=== PATIENT | female | born 1995 | race Caucasian/White ===

== ENCOUNTER 2020-07-23 23:10 | Emergency (ER) | payer BC, SELFPAY ==
[~2020-07-23] VITALS: Ht 160 cm; Wt 66.0 kg
[2020-07-23 23:11] VITALS: BP 127/88
--- NOTE | 2020-07-24 00:11 | REPVR ---
PROCEDURE INFORMATION: Exam: XR Left Ankle Exam date and time: 07/23/2020 12:00 AM Age: 24 years old Clinical indication: Other: Trauma TECHNIQUE: Imaging protocol: XR Left ankle. Views: 3 or more views. COMPARISON: No relevant prior studies available. FINDINGS: Bones/joints: Normal. No fracture. Soft tissues: Normal. IMPRESSION: Negative left ankle. Electronically signed by: Luis Pugh On 07/24/2020 00:11:17 AM
--- NOTE | 2020-07-24 00:12 | REPVR ---
PROCEDURE INFORMATION: Exam: XR Left Foot Complete Exam date and time: 07/23/2020 12:00 AM Age: 24 years old Clinical indication: Other: Trauma TECHNIQUE: Imaging protocol: XR Left foot. Views: 3 or more views. COMPARISON: No relevant prior studies available. FINDINGS: Bones/joints: Slight valgus angulation through the 1st metatarsophalangeal joint. There is slight varus angulation of the 1st metatarsal and slight prominence of the medial 1st metatarsal head. No fractures. Soft tissues: Normal. IMPRESSION: 1. Minimal bunion formation. 2. Otherwise negative left foot. No fracture. Electronically signed by: Luis Pugh On 07/24/2020 00:12:34 AM
== END 2020-07-24 01:15 | disposition home or self-care (01) ==
LOC: M ED 23:10
DX: S93.402A Sprain of unspecified ligament of left ankle, initial encounter (principal); W10.9XXA Fall (on) (from) unspecified stairs and steps, initial encounter; Y92.099 Unspecified place in other non-institutional residence as the place of occurrence of the external cause; Y93.9 Activity, unspecified; Y99.9 Unspecified external cause status